=== PATIENT | male | born 1975 | race African-American/Black ===

== ENCOUNTER 2017-07-29 05:36 | Day surgery (SDC) | payer OTHER ==
[2017-07-28 10:01] VITALS: BMI 33.8
[2017-07-29] VITALS (14 sets, daily range): BP systolic 61–151; BP diastolic 77–93; PULSE 64–82; RESP 13–18; Ht 180.3 cm; Wt 111.8 kg
[~2017-07-29] VITALS: Ht 180.3 cm; Wt 111.8 kg
[2017-07-29] MEDS ORDERED: POLYMYXIN/BACITRACIN 1L IRRIG ONE (07:02)
[2017-07-29] MEDS ORDERED: BUPIVACAINE 0.25% (MPF) 30 ML INJ ONE (07:02)
[2017-07-29] MEDS ORDERED: MIDAZOLAM 1 MG/ML 2 ML INJ ONE (07:32)
[2017-07-29] MEDS ORDERED: FENTAnyl 50 MCG/ML VIAL ONE (07:32)
[2017-07-29] MEDS ORDERED: PROPOFOL 20 ML ONE (07:32)
[2017-07-29] MEDS ORDERED: LIDOCAINE 2% (SDV) 5 ML INJ ONE (07:32)
[2017-07-29] MEDS ORDERED: SUCCINYLCHOLINE CHLORIDE 100 MG/5 ML SYG IV ONE (07:32)
--- NOTE | 2017-07-29 07:34 | HPN ---
Date/Time of Note Date/Time of Note DATE: 07/29/17 TIME: 07:34 Interval H&P Admission Note Pt. seen H&P reviewed: No system changes DESTINY ZAMORANO MD Jul 29, 2017 07:34
[2017-07-29] MEDS ORDERED: METOCLOPRAMIDE 10 MG INJ ONE (07:54)
[2017-07-29] MEDS ORDERED: ROCURONIUM 50 MG INJ ONE (07:54)
[2017-07-29] MEDS ORDERED: CEFAZOLIN 1 GM INJ ONE (07:54)
[2017-07-29] MEDS ORDERED: ONDANSETRON 4 MG INJ ONE (07:54)
[2017-07-29] MEDS ORDERED: DEXAMETHASONE 4 MG/ML 1 ML INJ ONE (07:54)
[2017-07-29] MEDS ORDERED: HYDROmorphONE 2 MG/ML SYG ONE (08:01)
[2017-07-29] MEDS ORDERED: LABETALOL HCL 20MG INJ ONE (08:05)
[2017-07-29] MEDS ORDERED: BUPIVACAINE 0.5%/EPI (SDV) 10 ML INJ ONE (08:09)
[2017-07-29] MEDS ORDERED: SUGAMMADEX SODIUM 200 MG/2 ML VIAL IV ONE (08:15)
[2017-07-29] MEDS ORDERED: KETOROLAC 30 MG INJ ONE (08:19)
[2017-07-29] MEDS ORDERED: ONDANSETRON 4 MG INJ IV PRN ×2 (08:30→09:00)
[2017-07-29] MEDS ORDERED: MEPERIDINE 25 MG INJ IV PRN (08:30)
[2017-07-29] MEDS ORDERED: FENTAnyl 50 MCG/ML VIAL IV PRN (08:30)
[2017-07-29] MEDS ORDERED: PROCHLORPERAZINE 10 MG INJ IV PRN (08:30)
[2017-07-29] MEDS ORDERED: HYDROmorphONE (0.2 MG/ML) 10ML SYG IV PRN (08:30)
[2017-07-29] MEDS ORDERED: hydrALAzine 20 MG INJ IV PRN (08:30)
[2017-07-29] MEDS ORDERED: OXYCODONE/ACETAMINOPHEN (5/325) TAB PO PRN ×4 (08:30→09:00)
[2017-07-29] MEDS ORDERED: LORAZEPAM 2 MG INJ IV PRN (08:30)
[2017-07-29] MEDS ORDERED: LABETALOL HCL 20MG INJ IV PRN (08:30)
[2017-07-29] MEDS ORDERED: DIPHENHYDRAMINE 50 MG INJ IV PRN (08:30)
--- NOTE | 2017-07-29 08:47 | OPR ---
Date/Time of Note Date/Time of Note DATE: 07/29/17 TIME: 08:41 Operative Report Procedure Date: Jul 29, 2017 Preoperative Diagnosis Umbilical hernia without obstruction Postoperative Diagnosis Umbilical hernia without obstruction (incarcerated omentum) Operation Performed 1. Umbilical hernia repair with medium proceed patch 2. Partial omentectomy Surgeon: DESTINY ZAMORANO MD Anesthesia Type: general Anesthesiologist: WEI ALMONTE MD Estimated Blood Loss: 0 - 10 ml's Transfusion Required: no Specimens 1. Hernia sac 2. Omentum Grafts/Implants Medium proceed patch Tubes/Drains None Complications: no Pt Condition Post Procedure: stable Disposition: PACU Indications Symptoms Operative\Procedure Findings After satisfactory general endotracheal anesthesia was achieved, the abdomen was prepped and draped in the usual fashion. There was a moderate amount of redundant skin around this hernia. A crescent shaped left circumumbilical incision was made encompassing the left aspect of the redundant skin on the umbilicus. Skin ellipse was excised with electrocautery and discarded. Next the sac was dissected from the skin down to fascia circumferentially. The sac was opened, and dissected from incarcerated omentum using blunt and electrocautery dissection. The sac was thus submitted. The omentum could not be reduced through the fascial defect. The omentum was divided at the fascial level with several passes of the impact LigaSure. The omentum was excised and submitted. The fascial defect measured 3 cm. A medium proceed patch was placed below the fascial defect as an underlay. It was secured to healthy fascia via its mesh straps utilizing interrupted 2-0 Novafil sutures. Redundant straps were excised and discarded. The resultant repair was a tension -free underlay repair. The right edge of the fascia was approximated with a single suture of #2 Vicryl. Wound was infiltrated with 30 cc of 0.5% Marcaine with epinephrine. The umbilicus was tacked to the midline with 3-0 Vicryl. The skin was closed with michelle. Sponge and needle counts were reported as correct 2. DESTINY ZAMORANO MD Jul 29, 2017 08:47
[2017-07-29] MEDS ORDERED: morphine 2 MG INJ IV PRN (09:00)
[2017-07-29] MEDS: HYDROmorphONE (0.2 MG/ML) 10ML SYG IV PRN ×2 (09:13→09:41)
== END 2017-07-29 10:45 | disposition home or self-care (01) ==
LOC: SDS 05:36
PROVIDERS: ATTEND Surgery
DX: K42.9 Umbilical hernia without obstruction or gangrene (principal); E78.5 Hyperlipidemia, unspecified; E66.9 Obesity, unspecified; Z68.34 Body mass index [BMI] 34.0-34.9, adult
CPT/HCPCS: 49585; 88302; 88304; C1781; J0690; J1100; J1170; J1885; J2250; J2405; J2765; J3010; Z7512; Z7610; J7999